=== PATIENT | male | born 1975 | race American Indian/Alaskan Native ===

== ENCOUNTER 2024-06-18 07:51 | Inpatient (IN) ==
[2024-06-18] MEDS ORDERED: NS 0.9% IVPB SCH (09:00)
[2024-06-18] MEDS ORDERED: VANCOMYCIN IVPB SCH (09:00)
[2024-06-18] MEDS: cefTRIAXone 1 gm/50 mL D5W 1 GM/50 ML BAG IV ONE (09:25)
[2024-06-18] MEDS: Lactated Ringers 1000 ml BAG 1,000 ML IV ONE (09:31)
[2024-06-18] MEDS: Clindamycin 900 MG/D5W BAG 900 MG/50 ML BAG IVPB ONE (09:31)
[2024-06-18 09:46] LABS: ABS Eosinophils 0.1 10^3/uL (0.0-0.5); ABS Monocytes 0.8 10^3/uL (0.0-1.1); Eosinophil % 1.3 %; Hematocrit 29.4 % (38-53); Hemoglobin 9.8 g/dL (13.2-16.3); Lymphocyte % 14.2 %; Mean Corpuscular Hemoglobin 28.5 pg (27-33); Mean Corpuscular Hgb Conc 33.2 g/dL (31-36); Mean Corpuscular Volume 85.7 fL (80-97); Mean Platelet Volume 7.6 fL (7.5-11.2); Nucleated Red Blood Cells % 0.1 %/100WBC (0.0-0.8); Platelet Count 246 10^3/uL (150-450); Red Blood Count 3.43 10^6/uL (4.06-5.63); Red Cell Distribution Width 15.8 % (12-17)
[2024-06-18 10:31] LABS: Albumin/Globulin Ratio 1.1 (1-3); C Reactive Protein 78.33 mg/L (<8.01); Calcium 8.8 mg/dL (8.6-10.3); Creatinine, Serum 1.1 mg/dL (0.67-1.17); Globulin 3.7 g/dL (2-4); Total Bilirubin 0.6 mg/dL (0.2-1.0); Total Protein 7.7 g/dL (6.4-8.9); eGFR CKD-EPI 82.8 (>60)
[2024-06-18] MEDS: Vancomycin 2,000 MG in NS 0.9% 500 ml BAG 500 ML IVPB ONE (10:55)
[2024-06-18 11:01] LABS: Erythrocyte Sed Rate 51 mm/Hr (0-14)
[2024-06-18] MEDS: Iohexol 350 (CONTRAST) 500 ML MDV IV ONE (12:12)
[2024-06-18] MEDS ORDERED: Acetaminophen IV 1 GM/100ML 1,000 MG/100 ML BAG IV PRN (17:19)
[2024-06-18] MEDS: Enoxaparin 40 MG/0.4 ML SYR SUBCUT SCH (19:18)
[2024-06-18] MEDS: Morphine 2 MG/ML SYRINGE IV PRN (21:30)
[2024-06-19] MEDS: Vancomycin 1,000 MG in NS 0.9% 250 ml 250 ML IVPB ONE (07:33)
[2024-06-19] MEDS ORDERED: Vancomycin per Pharmacy 1 EA NOTE FOLLOW UP SCH (08:00)
[2024-06-19 08:02] LABS: ABS Eosinophils 0.3 10^3/uL (0.0-0.5); ABS Lymphocytes 1.8 10^3/uL (1.0-4.8); ABS Monocytes 0.8 10^3/uL (0.0-1.1); ABS Neutrophils 2.7 10^3/uL (1.5-7.6); Eosinophil % 4.6 %; Hematocrit 33.6 % (38-53); Hemoglobin 11.3 g/dL (13.2-16.3); Lymphocyte % 31.9 %; Mean Corpuscular Hgb Conc 33.8 g/dL (31-36); Mean Corpuscular Volume 85.8 fL (80-97); Mean Platelet Volume 7.8 fL (7.5-11.2); Platelet Count 245 10^3/uL (150-450); Red Blood Count 3.92 10^6/uL (4.06-5.63); Red Cell Distribution Width 15.8 % (12-17); White Blood Count 5.7 10^3/uL (3.6-10.2)
[2024-06-19] MEDS: cefTRIAXone 1 gm/50 mL D5W 1 GM/50 ML BAG IV SCH (08:19)
[2024-06-19 08:50] LABS: Albumin 3.7 g/dL (3.2-5.2); Albumin/Globulin Ratio 1.1 (1-3); Calcium 8.6 mg/dL (8.6-10.3); Creatinine, Serum 0.9 mg/dL (0.67-1.17); Globulin 3.5 g/dL (2-4); Potassium 4.2 mmol/L (3.5-5.0); Total Bilirubin 0.4 mg/dL (0.2-1.0); Total Protein 7.2 g/dL (6.4-8.9); eGFR CKD-EPI 105.4 (>60)
[2024-06-19] MEDS: Vancomycin 1,500 MG in NS 0.9% 250 ml 250 ML IVPB ONE (09:59)
[2024-06-19] MEDS: Morphine 2 MG/ML SYRINGE IV PRN (10:38)
[2024-06-19] MEDS: Vancomycin 1,250 MG in NS 0.9% 250 ml 250 ML IVPB SCH (17:39)
[2024-06-20] MEDS: Vancomycin 1,250 MG in NS 0.9% 250 ml 250 ML IVPB SCH (06:05)
[2024-06-20] MEDS ORDERED: Nicotine GUM 2MG FRUIT FLAVOR PO PRN (08:43)
[2024-06-20] MEDS: Lidocaine PATCH 5% PATCH TRANSDERM SCH (10:32)
[2024-06-20] MEDS: Vancomycin Trough Check NOTE FOLLOW UP ONE (14:35)
[2024-06-21 07:42] LABS: Hematocrit 39.3 % (38-53); Hemoglobin 12.7 g/dL (13.2-16.3); Mean Corpuscular Hemoglobin 28.7 pg (27-33); Mean Corpuscular Hgb Conc 32.2 g/dL (31-36); Mean Corpuscular Volume 89.3 fL (80-97); Mean Platelet Volume 7.8 fL (7.5-11.2); Platelet Count 263 10^3/uL (150-450); Red Cell Distribution Width 16.4 % (12-17)
[2024-06-21] MEDS: Nicotine PATCH 21 MG/24 HR PATCH TRANSDERM SCH (09:42)
[2024-06-21 10:06] VITALS: BP 118/81
[2024-06-22] MEDS ORDERED: Vancomycin Trough Check NOTE FOLLOW UP ONE (06:00)
== END 2024-06-21 15:50 | disposition home or self-care (01) | DRG 349 ==
LOC: EDHOLD 07:51 → ED 07:51 → MED 16:31
PROVIDERS: ADMIT Student in an Organized Health Care Education/Training Program; ATTEND Student in an Organized Health Care Education/Training Program